=== PATIENT | female | born 1935 | race Caucasian/White ===

== ENCOUNTER → 2017-01-28 | Outpatient (CLI) | payer MEDICARE, OTHER ==
[~2017-01-28] MED LIST: AMLO5TAB2 PO; ATOR10TA PO; CHOL200074 PO; CYAN50TA PO; GABA-586 PO; LISI-334 PO; OMEG500C PO; PSYL1PAC PO
--- NOTE | 2017-01-28 15:07 | RAD ---
DATE: 01/28/2017 EXAM: MAMMO SKIP SCREEN LT HISTORY: Right breast cancer, left breast screening COMPARISON: 10/14/2015 This study was interpreted with the benefit of Computerized Aided Detection (CAD). FINDINGS: The left breast is heterogeneously dense in a slightly nodular pattern. No new or enlarging breast densities are seen. There are numerous benign type calcifications. No suspicious microcalcifications have developed. IMPRESSION: Stable left mammograms without evidence of malignancy. BI-RADS CATEGORY: 2 BENIGN FINDING(S) RECOMMENDED FOLLOW-UP: 12M 12 MONTH FOLLOW-UP PQRS compliance statement: Patient information was entered into a reminder system with a target due date for the next mammogram. Mammography is a sensitive method for finding small breast cancers, but it does not detect them all and is not a substitute for careful clinical examination. A negative mammogram does not negate a clinically suspicious finding and should not result in delay in biopsying a clinically suspicious abnormality. "Our facility is accredited by the [employer] Mammography Program."
== END | disposition home or self-care (01) ==
LOC: MAMMO 13:22
PROVIDERS: ATTEND Internal Medicine Hematology & Oncology
DX: Z12.31 Encounter for screening mammogram for malignant neoplasm of breast (principal)
CPT/HCPCS: 77063; G0202; 77067